=== PATIENT | female | born 1960 | race Caucasian/White ===

== ENCOUNTER → 2018-04-13 12:00 | Outpatient (CLI) | payer BC, SELFPAY ==
[2018-04-19 08:26] LABS: HPV Reflexed? NOT INDICATED
== END ==
PROVIDERS: Visit Provider Obstetrics & Gynecology
DX: Z12.4 Encounter for screening for malignant neoplasm of cervix (principal)
CPT/HCPCS: 88175; G0145

== ENCOUNTER → 2018-07-27 16:51 | Outpatient (CLI) | payer BC, SELFPAY ==
[2018-07-27 18:29] LABS: Estradiol 11.2 pg/mL
[2018-07-27 18:37] LABS: Progesterone Level 0.14 ng/mL (See Comment)
[2018-07-29 10:33] LABS: DHEA Sulfate 32.2 ug/dL (29.4-220.5)
== END ==
PROVIDERS: Visit Provider Obstetrics & Gynecology
DX: N95.1 Menopausal and female climacteric states (principal)
CPT/HCPCS: 36415; 82533; 82627; 82670; 84144; 82626